=== PATIENT | female | born 2000 | race African-American/Black ===

== ENCOUNTER 2018-05-18 10:27 | Emergency (ER) | payer BC, OTHER ==
[~2018-05-18] VITALS: Ht 180.3 cm; Wt 73.5 kg
[~2018-05-18 10:27] MED LIST: ARIP2TAB3 PO; DULO60CA45 PO; QUET100T PO
--- NOTE | 2018-05-18 10:38 | NUR ---
BIB MOTHER W C/O DIFFUSE ABDOMINAL PAIN, NAUSEA AND VOMITING SINCE , TO ER BED 4, HOOKED TO MONITOR, CHANGED TO GOWN, AWAITING MD NEWBY
--- NOTE | 2018-05-18 10:50 | NUR ---
DR FARNSWORTH AT BEDSIDE
[2018-05-18] MEDS ORDERED: ONDANSETRON HCL/PF 4 MG/2 ML VIAL ONE (11:09)
[2018-05-18] MEDS ORDERED: PANTOPRAZOLE 40 MG VIAL ONE (11:09)
[2018-05-18] MEDS: IV NS 0.9% 1,000 ML BAG IV ONE (11:32)
[2018-05-18 11:34] LABS: CALCIUM, SERUM 8.9 mg/dL (8.5-10.1); CREATININE 0.8 mg/dL (0.6-1.3); POTASSIUM 4.1 mmol/L (3.5-5.1)
[2018-05-18] MEDS: ONDANSETRON HCL/PF 4 MG/2 ML VIAL IVP ONE (11:38)
[2018-05-18] MEDS: PANTOPRAZOLE 40 MG VIAL IV ONE (11:38)
[2018-05-18] MEDS: CAPSAICIN 0.025% CREAM 56.6 GM TUBE TP SCH (11:39)
[2018-05-18 11:41] LABS: ALBUMIN 3.7 g/dL (3.4-5.0); BILIRUBIN,TOTAL 0.3 mg/dL (0.2-1.0); TOTAL PROTEIN, SERUM 7.8 g/dL (6.4-8.2)
[2018-05-18 11:46] LABS: BASOPHILS % (AUTO) 0.2 % (0.0-2.0); EOSINOPHILS % (AUTO) 3.9 % (0.0-6.0); HEMATOCRIT 40 % (33-45); HEMOGLOBIN 12.9 g/dL (11.5-14.8); LYMPHOCYTES # (AUTO) 1.7 /CMM (0.8-4.8); LYMPHOCYTES % (AUTO) 20.9 % (20.0-44.0); MEAN CORPUSCULAR HGB CONC 32 g/dl (31.0-36.0); MEAN CORPUSCULAR VOLUME 74 fL (82-100); MONOCYTES # (AUTO) 0.4 /CMM (0.1-1.30); MONOCYTES % (AUTO) 4.6 % (2.0-12.0); NEUTROPHILS # (AUTO) 5.7 /CMM (1.8-8.9); NEUTROPHILS % (AUTO) 70.4 % (43.0-81.0); PLATELET COUNT (AUTO) 261 /CMM (150-450); RED BLOOD CELL COUNT(AUTO) 5.38 MIL/uL (4.0-5.2); WHITE BLOOD COUNT (AUTO) 8.1 K/uL (4.3-11.0)
--- NOTE | 2018-05-18 12:08 | NUR ---
IV removed. Catheter intact and site benign. Pressure and 4x4 applied to site. No bleeding noted.Patient discharged to home in stable condition. Written and verbal after care instructions given. Patient verbalizes understanding of instruction.
[2018-05-18 12:11] VITALS: BP 133/77
== END 2018-05-18 12:12 | disposition home or self-care (01) ==
LOC: ER 10:29
DX: R11.2 Nausea with vomiting, unspecified (principal); F12.10 Cannabis abuse, uncomplicated; F32.9 Major depressive disorder, single episode, unspecified; G47.00 Insomnia, unspecified; Z79.899 Other long term (current) drug therapy
CPT/HCPCS: 36415; 80048; 80076; 83690; 85025; 96361; 96374; 96375; 99283; C9113; J2405; J7030

== ENCOUNTER 2018-06-04 15:53 | Emergency (ER) | payer BC ==
[~2018-06-04] VITALS: Ht 180.3 cm; Wt 81.2 kg
[2018-06-04] MEDS ORDERED: DULO20CA PO (16:03)
[2018-06-04] MEDS ORDERED: QUET25TA PO (16:03)
--- NOTE | 2018-06-04 16:10 | NUR ---
AAOX3, BIBA RA 878 AND [employer] from home SI pt states "I dont wanna live anymore", no plan at this time. RR is even and unlabored with NAD noted. Skin is warm and dry. Dr Simmons at BS for eval.
--- NOTE | 2018-06-04 16:23 | NUR ---
Clinical Documentation Nurse at drawing blood.
--- NOTE | 2018-06-04 16:24 | NUR ---
Urine obtained sent to the lab.
[2018-06-04 16:25] LABS: APPEARANCE,URINE Slightly Cloudy (CLEAR); BILIRUBIN,URINE Negative (NEGATIVE); BLOOD, URINE Trace-intact Ery/uL (NEGATIVE); COLOR,URINE Yellow (YELLOW); KETONES,URINE Negative (NEGATIVE); LEUKOCYTE ESTERASE ,URINE Small (NEGATIVE); NITRITE, URINE Negative (NEGATIVE); PROTEIN,URINE Trace mg/dl (NEGATIVE); UGLUCOSE Negative (NEGATIVE); UROBILINOGEN,URINE 0.2 EU/dL (0.2)
[2018-06-04 16:30] LABS: BASOPHILS % (AUTO) 0.4 % (0.0-2.0); EOSINOPHILS % (AUTO) 2.6 % (0.0-6.0); HEMATOCRIT 41 % (33-45); HEMOGLOBIN 13.5 g/dL (11.5-14.8); LYMPHOCYTES # (AUTO) 2.5 /CMM (0.8-4.8); LYMPHOCYTES % (AUTO) 26.6 % (20.0-44.0); MEAN CORPUSCULAR HGB CONC 33 g/dl (31.0-36.0); MEAN CORPUSCULAR VOLUME 73 fL (82-100); MONOCYTES # (AUTO) 0.4 /CMM (0.1-1.30); MONOCYTES % (AUTO) 4.1 % (2.0-12.0); NEUTROPHILS # (AUTO) 6.2 /CMM (1.8-8.9); NEUTROPHILS % (AUTO) 66.3 % (43.0-81.0); PLATELET COUNT (AUTO) 317 /CMM (150-450); RED BLOOD CELL COUNT(AUTO) 5.67 MIL/uL (4.0-5.2); WHITE BLOOD COUNT (AUTO) 9.4 K/uL (4.3-11.0)
[2018-06-04 16:38] LABS: RBC,URINE 0-2 /HPF (0-2)
[2018-06-04 16:38] LABS: CARBON DIOXIDE 23 mmol/L (21-32); CHLORIDE 104 mmol/L (98-107); CREATININE 0.8 mg/dL (0.6-1.3); GLUCOSE 95 mg/dL (74-106); POTASSIUM 3.7 mmol/L (3.5-5.1); SODIUM SERUM 137 mmol/L (136-145); UREA NITROGEN, BLOOD 13 mg/dL (7-18)
[2018-06-04 16:39] LABS: BACTERIA,URINE Moderate /HPF (None Seen)
[2018-06-04 16:40] LABS: SQUAMOUS EPITHELIAL CELL,UR Many /HPF (None Seen)
[2018-06-04 16:53] LABS: ALANINE AMINOTRANSFERASE 18 U/L (12-78); ALBUMIN 3.9 g/dL (3.4-5.0); ALKALINE PHOSPHATASE 69 U/L (46-116); ASPARTATE AMINOTRANSFERASE 17 U/L (15-37); BILIRUBIN,DIRECT 0.1 mg/dL (0.0-0.2); BILIRUBIN,TOTAL 0.3 mg/dL (0.2-1.0); SALICYLATE 0.9 mg/dL (2.8-20.0)
[2018-06-04 16:54] LABS: ACETAMINOPHEN 0 ug/ml (10-30); ALCOHOL, BLOOD < 3 mg/dL (0-0)
[2018-06-04 16:55] LABS: THYROID STIMULATING HORMONE 1.389 uIU/mL (0.358-3.74)
--- NOTE | 2018-06-04 17:00 | NUR ---
CALLED [employer] LEASING MANAGER SHAWNA CONTRERAS 1 HR
--- NOTE | 2018-06-04 17:54 | NUR ---
KYAW Olivares for Psych eval.
[2018-06-04] MEDS ORDERED: NITROFURANTOIN/NITROFURAN MAC 100 MG CAPSULE PO ONE (18:30)
--- NOTE | 2018-06-04 18:30 | NUR ---
Patient is resting comfortably in bed. VSS
[2018-06-04] MEDS ORDERED: NITROFURANTOIN/NITROFURAN MAC 100 MG CAPSULE ONE (18:33)
--- NOTE | 2018-06-04 19:07 | NUR ---
REPORT GIVEN TO KYAW ROGEL FOR HO.
--- NOTE | 2018-06-04 20:41 | NUR ---
DOM ETA [id number] TRIP#[id number]
--- NOTE | 2018-06-04 20:48 | NUR ---
DIRECT ADMIT TO [facility] PENDING ROOM PER PLUSH DRESSER RN FOR REPORT [phone]
--- NOTE | 2018-06-04 21:14 | NUR ---
REPORT GIVEN TO KYAW MURGUIA AT [facility] FOR HO
--- NOTE | 2018-06-04 21:14 | NUR ---
[facility] BED 442-A
[2018-06-04 21:50] VITALS: BP 121/68
== END 2018-06-04 22:35 | disposition home or self-care (01) ==
LOC: ER 15:58
DX: F29 Unspecified psychosis not due to a substance or known physiological condition (principal); G47.00 Insomnia, unspecified; F32.9 Major depressive disorder, single episode, unspecified; R45.851 Suicidal ideations; F12.10 Cannabis abuse, uncomplicated
CPT/HCPCS: 36415; 80048; 80076; 80305; 80307; 80329; 81001; 84443; 84703; 85025; 87086; 99284; G0480; 81000-TC

== ENCOUNTER 2019-10-27 14:56 | Emergency (ER) | payer BC ==
[~2019-10-27] VITALS: Ht 180.3 cm; Wt 93.4 kg
[2019-10-27] MEDS ORDERED: OLANZAPINE 10 MG VIAL IM ONE ×2 (15:26→15:30)
--- NOTE | 2019-10-27 15:35 | NUR ---
ER BED 12 PT BROUGHT IN BY DRAGLINE OPERATOR HELPER COMPLAINT OF SUICIDAL IDEATION. PT CRYING CONTINOUSLY UPON ARRIVAL. NO CARDIAC OR RESPIRATORY DISTRESS NOTED. VS STABLE.
--- NOTE | 2019-10-27 15:38 | NUR ---
ZYPREXA ZYPREXA IM GIVEN PER MD ORDER.
[2019-10-27 15:53] LABS: BASOPHILS # (AUTO) 0.1 /CMM (0.0-0.2); BASOPHILS % (AUTO) 0.4 % (0.0-2.0); EOSINOPHILS % (AUTO) 3.9 % (0.0-6.0); HEMATOCRIT 46 % (33-45); HEMOGLOBIN 14.9 g/dL (11.5-14.8); LYMPHOCYTES # (AUTO) 3.6 /CMM (0.8-4.8); LYMPHOCYTES % (AUTO) 29.1 % (20.0-44.0); MEAN CORPUSCULAR HGB CONC 32 g/dl (31.0-36.0); MEAN CORPUSCULAR VOLUME 74 fL (82-100); MONOCYTES # (AUTO) 0.7 /CMM (0.1-1.30); NEUTROPHILS # (AUTO) 7.4 /CMM (1.8-8.9); NEUTROPHILS % (AUTO) 60.6 % (43.0-81.0); PLATELET COUNT (AUTO) 346 /CMM (150-450); RED BLOOD CELL COUNT(AUTO) 6.23 MIL/uL (4.0-5.2); WHITE BLOOD COUNT (AUTO) 12.3 K/uL (4.3-11.0)
[2019-10-27 15:59] LABS: CARBON DIOXIDE 23 mmol/L (21-32); CHLORIDE 104 mmol/L (98-107); CREATININE 0.9 mg/dL (0.6-1.3); GLUCOSE 88 mg/dL (74-106); SODIUM SERUM 139 mmol/L (136-145); UREA NITROGEN, BLOOD 10 mg/dL (7-18)
[2019-10-27 16:05] LABS: ALANINE AMINOTRANSFERASE 20 U/L (12-78); ALBUMIN 4.3 g/dL (3.4-5.0); ALCOHOL, BLOOD < 3 mg/dL (0-0); ALKALINE PHOSPHATASE 88 U/L (46-116); ASPARTATE AMINOTRANSFERASE 18 U/L (15-37); BILIRUBIN,DIRECT 0.1 mg/dL (0.0-0.2); BILIRUBIN,TOTAL 0.4 mg/dL (0.2-1.0); CALCIUM, SERUM 9.7 mg/dL (8.5-10.1); TOTAL PROTEIN, SERUM 8.8 g/dL (6.4-8.2)
[2019-10-27 16:06] LABS: SALICYLATE < 2.8 mg/dL (2.8-20.0)
--- NOTE | 2019-10-27 16:40 | NUR ---
Hailee Denton, called for PET eval. ETA 1hr.
[2019-10-27 16:55] LABS: BILIRUBIN,URINE Negative (NEGATIVE); BLOOD, URINE Negative Ery/uL (NEGATIVE); COLOR,URINE Yellow (YELLOW); KETONES,URINE 15 (NEGATIVE); LEUKOCYTE ESTERASE ,URINE Negative (NEGATIVE); NITRITE, URINE Negative (NEGATIVE); PH,URINE 7.5 (5.0-8.0); PROTEIN,URINE 30 mg/dl (NEGATIVE); UGLUCOSE Negative (NEGATIVE); UROBILINOGEN,URINE 0.2 EU/dL (0.2)
[2019-10-27 16:59] LABS: BAND % (MANUAL) 1 % (0.0-5.0); EOSINOPHILS % (MANUAL) 6 % (0-4); LYMPHOCYTES % (MANUAL) 34 % (16-48); MONOCYTES % (MANUAL) 1 % (0-11.0); NEUTROPHILS % (MANUAL) 58 (42-76)
[2019-10-27 16:59] LABS: APPEARANCE,URINE SLIGHTLY HAZY (CLEAR)
[2019-10-27 17:00] LABS: BACTERIA,URINE Few /HPF (None Seen); SQUAMOUS EPITHELIAL CELL,UR Moderate /HPF (None Seen)
--- NOTE | 2019-10-27 17:30 | NUR ---
PT ASLEEP, EASILY AWAKEN BY VERBAL STIMULI & WILL GO BACK TO SLEEP. DENIES CP, SOB, DIZZINESS, ABD PAIN, N/V AT THIS TIME. WILL CONT TO MONITOR. DEVON @ BS.
--- NOTE | 2019-10-27 17:58 | NUR ---
received a call from the lab regarding covid 19 result "positive", notified.
[2019-10-27] MEDS ORDERED: diphenhydrAMINE HCL 50 MG/ML VIAL ONE (20:54)
[2019-10-27 21:00] VITALS: BP 110/74
[2019-10-27] MEDS ORDERED: diphenhydrAMINE HCL 50 MG/ML VIAL IM ONE (21:00)
[2019-10-27] MEDS ORDERED: diphenhydrAMINE HCL 50 MG CAPSULE ONE (21:16)
--- NOTE | 2019-10-27 21:29 | NUR ---
AWAITING PERCH MENDER ODIN. PT CRYING, MEDICATED PER ERMD ORDER, PT CLOTILDE WELL. WILL CONT TO MONITOR. DEVON @ BS.
[2019-10-27] MEDS ORDERED: diphenhydrAMINE HCL 25 MG CAPSULE PO ONE (21:30)
--- NOTE | 2019-10-27 22:35 | NUR ---
Patient is resting comfortably in bed with eyes closed. Easily aroused. VSS
--- NOTE | 2019-10-28 00:57 | NUR ---
PATIENT IS SLEEPING. EASILY AROUSABLE THROUGH TOUCH AND VERBAL STIMULI. CONNECTED TO THE MONITOR. BREATHING EVENLY AND UNLABORED ON ROOM AIR. SITTER AT BEDSIDE.
--- NOTE | 2019-10-28 02:35 | NUR ---
Patient is crying, frustrated, and upset. Patient is redirectable after multiple attempts. Patient is given food and drinks.
--- NOTE | 2019-10-28 03:51 | NUR ---
Marcos FRAUSTO at bedside speaking with patient.
[2019-10-28] MEDS ORDERED: OLANZAPINE 5 MG TABLET ONE (04:09)
--- NOTE | 2019-10-28 04:27 | NUR ---
Patient's mother, Mary is present in the waiting room to receive patient to go home.
--- NOTE | 2019-10-28 04:28 | NUR ---
Patient's mother and patient's grandmother is speaking with Marcos RITTER
[2019-10-28] MEDS ORDERED: OLANZAPINE 5 MG/TAB.RAPDIS PO ONE (04:30)
--- NOTE | 2019-10-28 04:33 | NUR ---
Patient discharged to home in stable condition. Written and verbal after care instructions given. Patient verbalizes understanding of instruction.
== END 2019-10-28 05:00 | disposition home or self-care (01) ==
LOC: ER 14:57
DX: R45.851 Suicidal ideations (principal); U07.1 COVID-19; G47.00 Insomnia, unspecified; F32.9 Major depressive disorder, single episode, unspecified; R45.1 Restlessness and agitation
CPT/HCPCS: 36415; 80048; 80076; 80305; 80307; 80329; 81001; 84703; 85025; 87086; 87426; 96372; 99285; C9803; G0480; J1200; J3490; Q0163; 81000-TC

== ENCOUNTER 2021-02-07 14:02 | Emergency (ER) | payer SELFPAY ==
[~2021-02-07] VITALS: Ht 180.3 cm; Wt 77.1 kg
--- NOTE | 2021-02-07 14:20 | NUR ---
[id number] FROM HOME C/O ABDOMINAL PAIN WITH NAUSEA AND VOMITING SINCE THE MNORNING. VSS. BREATHING IS REGULAR AND UNLABORED.
--- NOTE | 2021-02-07 15:00 | NUR ---
IV LINE ESTABLISHED BLOOD DRAWN AND SENT TO LAB.
[2021-02-07] MEDS ORDERED: ONDANSETRON HCL/PF 4 MG/2 ML VIAL ONE ×2 (15:04→16:31)
[2021-02-07 15:26] LABS: BASOPHILS % (AUTO) 0.1 % (0.0-2.0); HEMATOCRIT 45 % (33-45); HEMOGLOBIN 14.4 g/dL (11.5-14.8); LYMPHOCYTES # (AUTO) 1.4 K/uL (0.8-4.8); LYMPHOCYTES % (AUTO) 9.6 % (20.0-44.0); MEAN CORPUSCULAR HGB CONC 32 g/dl (31.0-36.0); MEAN CORPUSCULAR VOLUME 74 fL (82-100); MONOCYTES # (AUTO) 0.4 K/uL (0.1-1.30); NEUTROPHILS # (AUTO) 12.9 K/uL (1.8-8.9); NEUTROPHILS % (AUTO) 87.3 % (43.0-81.0); PLATELET COUNT (AUTO) 383 K/uL (150-450); RED BLOOD CELL COUNT(AUTO) 6.08 MIL/uL (4.0-5.2); WHITE BLOOD COUNT (AUTO) 14.8 K/uL (4.3-11.0)
[2021-02-07] MEDS ORDERED: ONDANSETRON HCL/PF 4 MG/2 ML VIAL IV ONE ×2 (15:30→16:30)
[2021-02-07] MEDS ORDERED: MORPHINE SULFATE INJ 2 MG/ML DISP.SYRIN IV ONE ×2 (15:30→16:30)
[2021-02-07] MEDS ORDERED: IV NS 0.9% 500 ML BAG IV ONE (15:30)
[2021-02-07] MEDS ORDERED: MORPHINE SULFATE INJ 4 MG/ML DISP.SYRIN ONE ×2 (15:36→16:28)
[2021-02-07 15:37] LABS: CALCIUM, SERUM 8.8 mg/dL (8.5-10.1); CREATININE 0.8 mg/dL (0.6-1.3); POTASSIUM 3.2 mmol/L (3.5-5.1)
[2021-02-07 15:43] LABS: ALBUMIN 4.2 g/dL (3.4-5.0); BILIRUBIN,DIRECT 0.1 mg/dL (0.0-0.2); BILIRUBIN,TOTAL 0.5 mg/dL (0.2-1.0); TOTAL PROTEIN, SERUM 7.5 g/dL (6.4-8.2)
[2021-02-07] MEDS ORDERED: POTASSIUM CHLORIDE 20 MEQ TAB.PRT.SR PO ONE ×2 (15:58→16:00)
--- NOTE | 2021-02-07 16:11 | NUR ---
PT UNABLE TO PROVIDE URINE AT THIS TIME
[2021-02-07 16:12] LABS: LYMPHOCYTES % (MANUAL) 11 % (16-48); MONOCYTES % (MANUAL) 5 % (0-11.0); NEUTROPHILS % (MANUAL) 84 (42-76)
--- NOTE | 2021-02-07 16:14 | NUR ---
COVID TEST COLLECTED AND SENT
[2021-02-07] MEDS ORDERED: IOHEXOL-300 100 ML VIAL IV ONE (16:18)
--- NOTE | 2021-02-07 16:39 | NUR ---
PT TAKEN TO [facility]
--- NOTE | 2021-02-07 16:48 | NUR ---
Ishmael erickson in [facility] - 02/07/21 at 1649 by SWEETIE PT BACK FROM CT
--- NOTE | 2021-02-07 16:49 | NUR ---
PT BACK FROM [facility]
--- NOTE | 2021-02-07 17:01 | NUR ---
URINE COLLECTED AND SENT TO LAB
[2021-02-07 17:23] LABS: BILIRUBIN,URINE NEGATIVE (NEGATIVE); COLOR,URINE YELLOW (YELLOW); LEUKOCYTE ESTERASE ,URINE NEGATIVE (NEGATIVE); NITRITE, URINE NEGATIVE (NEGATIVE); PH,URINE 8.5 (5.0-8.0); PROTEIN,URINE 30 mg/dl (NEGATIVE); UGLUCOSE NEGATIVE (NEGATIVE); UROBILINOGEN,URINE 0.2 EU/dL (0.2)
[2021-02-07 17:32] LABS: BACTERIA,URINE Few /HPF (None Seen); RBC,URINE 0-2 /HPF (0-2); SQUAMOUS EPITHELIAL CELL,UR Few /HPF (None Seen); WBC,URINE 0-2 /HPF (0-3)
[2021-02-07] MEDS ORDERED: ONDA4TAB5 PO (17:44)
[2021-02-07] MEDS ORDERED: TRAM50TA2 PO (17:44)
[2021-02-07] MEDS ORDERED: ACET-2605 PO (17:44)
[2021-02-07] MEDS ORDERED: AZITHROMYCIN 250 MG TABLET PO ONE (18:00)
--- NOTE | 2021-02-07 18:06 | NUR ---
Patient discharged to home in stable condition. Written and verbal after care instructions given. Patient verbalizes understanding of instruction. IV removed. Catheter intact and site benign. Pressure and 4x4 applied to site. No bleeding noted.
[2021-02-07 18:12] VITALS: BP 122/83
[2021-02-07] MEDS ORDERED: AZITHROMYCIN 250 MG TABLET ONE (18:14)
== END 2021-02-07 18:12 | disposition home or self-care (01) ==
LOC: ER 14:05
DX: K52.9 Noninfective gastroenteritis and colitis, unspecified (principal); D72.829 Elevated white blood cell count, unspecified; E87.6 Hypokalemia; E87.2 Acidosis; Z20.822 Contact with and (suspected) exposure to COVID-19; F32.A Depression, unspecified; G47.00 Insomnia, unspecified; Z79.899 Other long term (current) drug therapy
CPT/HCPCS: 36415; 74177; 80048; 80076; 81001; 83690; 84702; 85007; 85025; 87426; 96361; 96374; 96375; 96376; 99285; C9803; J2270 ×2; J2405 ×2; J7030; Q9967

== ENCOUNTER 2021-05-03 14:46 | Emergency (ER) | payer OTHER ==
[~2021-05-03] VITALS: Ht 170.2 cm; Wt 75.7 kg
[~2021-05-03 14:46] MED LIST changes: +ACET-2605 PO; +ONDA4TAB5 PO; +TRAM50TA2 PO
--- NOTE | 2021-05-03 14:55 | NUR ---
[facility] HOME, CALLED 911 S/P TAKING 28 PILLS OF GABAPENTIN 300MG STATES "I FEEL SAD" LOST MY JOB AND I WANT TO END IT." PT HAS HAD ABDOMINAL PAIN SINCE LAST SUMMER AND LOST HER JOB DUE TO CHRONIC PAIN AND STATED SHE DOESNT GET TO LEAVE THE HOUSE AND "WANTED TO [place]". PT IS DENYING TO ACT UPON HARM HERSELF AT THIS TIME. PT ATTCHED TO [facility]. SAFETY MEASURE IN PLACE; 1:[address] MANRIQUEZ AT BEDSIDE. WILL CONTINUE TO MONITOR.
--- NOTE | 2021-05-03 14:55 | NUR ---
CALLED [facility]ISON CONTROL [phone] SPOKE WITH MILA. WATCH FOR SEDATION, SLURRED SPEECH. ASPIRATION PRECAUTION. RECOMMENDED: ACTIVATED CHARCOAL 75-100 OBSERVATION FOR 6 HOUR SUPPORTIVE CARE. LABS FOR TYLENOL, ASPRIN, AND CMP.
--- NOTE | 2021-05-03 15:08 | NUR ---
IV ESTABLISHED R AC 20G. LABS DRAWN AND COLLECTED AT BEDSIDE
--- NOTE | 2021-05-03 15:16 | NUR ---
[employer] AT BEDSIDE
[2021-05-03 15:27] LABS: BASOPHILS % (AUTO) 0.4 % (0.0-2.0); EOSINOPHILS % (AUTO) 1.8 % (0.0-6.0); HEMATOCRIT 45 % (33-45); HEMOGLOBIN 14.3 g/dL (11.5-14.8); LYMPHOCYTES # (AUTO) 2.3 K/uL (0.8-4.8); LYMPHOCYTES % (AUTO) 23.2 % (20.0-44.0); MEAN CORPUSCULAR HGB CONC 32 g/dl (31.0-36.0); MEAN CORPUSCULAR VOLUME 74 fL (82-100); MONOCYTES # (AUTO) 0.5 K/uL (0.1-1.30); MONOCYTES % (AUTO) 5.1 % (2.0-12.0); NEUTROPHILS % (AUTO) 69.5 % (43.0-81.0); PLATELET COUNT (AUTO) 292 K/uL (150-450); RED BLOOD CELL COUNT(AUTO) 6.05 MIL/uL (4.0-5.2)
[2021-05-03 15:53] LABS: CALCIUM, SERUM 9.1 mg/dL (8.5-10.1); CARBON DIOXIDE 23 mmol/L (21-32); CHLORIDE 105 mmol/L (98-107); CREATININE 0.9 mg/dL (0.6-1.3); GLUCOSE 104 mg/dL (74-106); POTASSIUM 3.4 mmol/L (3.5-5.1); SODIUM SERUM 138 mmol/L (136-145); UREA NITROGEN, BLOOD 7 mg/dL (7-18)
[2021-05-03 15:57] LABS: ALANINE AMINOTRANSFERASE 17 U/L (12-78); ALBUMIN 4.5 g/dL (3.4-5.0); ALKALINE PHOSPHATASE 87 U/L (46-116); ASPARTATE AMINOTRANSFERASE 10 U/L (15-37); BILIRUBIN,DIRECT 0.1 mg/dL (0.0-0.2); BILIRUBIN,TOTAL 0.5 mg/dL (0.2-1.0); TOTAL PROTEIN, SERUM 8.1 g/dL (6.4-8.2)
[2021-05-03 15:59] LABS: ALCOHOL, BLOOD < 3 mg/dL (0-0)
[2021-05-03] MEDS ORDERED: ACTIVATED CHARCOAL 25 GM/120 ML TUBE ONE (16:27)
[2021-05-03] MEDS ORDERED: ACTIVATED CHARCOAL 25 GM/120 ML TUBE PO ONE (16:30)
--- NOTE | 2021-05-03 17:01 | NUR ---
URINE COLLECTED AND SENT
[2021-05-03 18:42] LABS: LYMPHOCYTES % (MANUAL) 30 % (16-48); MONOCYTES % (MANUAL) 5 % (0-11.0); NEUTROPHILS % (MANUAL) 64 (42-76); REACTIVE LYMPHOCYTES 1 % (0-0)
--- NOTE | 2021-05-03 19:21 | NUR ---
FESTUS SALAS. [phone] GRANDMOTHER.
--- NOTE | 2021-05-03 20:10 | NUR ---
CALLED [facility]. SHE IS ON HER WAY HERE.
[2021-05-03 20:17] LABS: BILIRUBIN,URINE NEGATIVE (NEGATIVE); COLOR,URINE YELLOW (YELLOW); LEUKOCYTE ESTERASE ,URINE NEGATIVE (NEGATIVE); NITRITE, URINE NEGATIVE (NEGATIVE); PH,URINE 7.5 (5.0-8.0); PROTEIN,URINE NEGATIVE (NEGATIVE); UGLUCOSE NEGATIVE (NEGATIVE)
[2021-05-03 20:49] LABS: BACTERIA,URINE RARE /HPF (None Seen); MUCUS,URINE Few /LPF (None Seen); RBC,URINE 0-2 /HPF (0-2); WBC,URINE 0-2 /HPF (0-3)
--- NOTE | 2021-05-03 21:27 | NUR ---
PATINE IS RESTING IN BED , EASILY AROUSABLE. SPOKE TO STABIEN AT POISON CONTR[facility] AND GAVE A SET OF VITAL AND UPDATED HIM. PER HIM PT IS CLEAR AND TRHEY WILL CLOSE THE CASE 87,108/68/19/98%
--- NOTE | 2021-05-03 23:23 | NUR ---
SEEN AND EVALUATED BY ALBINA DOMINGUEZ
--- NOTE | 2021-05-03 23:42 | NUR ---
Patient continue to have SI. Patient will remain on hold. Patient's clinicals where faxed to [facility] Valadez, [facility], [facility]. No openings at this time. Clinicals should be faxed again in the AM.
--- NOTE | 2021-05-04 03:25 | NUR ---
PT SLEEPING COMOFORTABLY. ALL NEEDS MET. V/S WNL.
--- NOTE | 2021-05-04 07:17 | NUR ---
PATIENT AWAKE, AAOX3, NO COMPLAINS AT THIS TIME
--- NOTE | 2021-05-04 10:58 | NUR ---
Patient's clinicals were re fax to [facility], [place], [facility], and [facility]. Awaiting for response.
--- NOTE | 2021-05-04 11:29 | NUR ---
[facility] called back and stated that pt. does not meet criteria for admission.
--- NOTE | 2021-05-04 11:36 | NUR ---
[facility] called and stated that pt. does not meet criteria for admission.
--- NOTE | 2021-05-04 12:09 | NUR ---
Pt. does not meet criteria for [facility].
--- NOTE | 2021-05-04 12:21 | NUR ---
[facility]andy[facility] Laury has no bed available at the moment. Waiting for discharge.
--- NOTE | 2021-05-04 13:55 | NUR ---
DON recived call from Intake: Viv from [facility] stating that they are willing to take the pt. and requested that negatiev COVID test be refaxed to her at [phone]. Noted. Per viv's request SW tranferred her to the ED to speak with nurse.
--- NOTE | 2021-05-04 14:01 | NUR ---
REPORT GIVEN DELILAH, ACCEPTED UNDER DR BOOGIE
--- NOTE | 2021-05-04 14:04 | NUR ---
FAXED UPDATED COVID RESULT TO JUSTIN STONE AT [phone]
--- NOTE | 2021-05-04 14:05 | NUR ---
SW faxed COVID test result to Denise Nam at [phone].
--- NOTE | 2021-05-04 14:06 | NUR ---
CALLED [facility] AND SET UP S TRANSPORT TO [facility] 1500
--- NOTE | 2021-05-04 15:00 | NUR ---
PICKED UP BY TRANSPORT IN STABLE CONDITION
[2021-05-04 15:55] VITALS: BP 130/87
== END 2021-05-04 17:36 ==
LOC: ER 14:48
DX: T42.6X2A Poisoning by other antiepileptic and sedative-hypnotic drugs, intentional self-harm, initial encounter (principal); Y92.039 Unspecified place in apartment as the place of occurrence of the external cause; F32.A Depression, unspecified; G47.00 Insomnia, unspecified; Z20.822 Contact with and (suspected) exposure to COVID-19
CPT/HCPCS: 36415; 80048; 80076; 80143; 80307; 80320; 81001; 84703; 85007; 85025; 87426; 93005; 99291; C9803; G0480

== ENCOUNTER 2021-05-10 02:18 | Emergency (ER) | payer OTHER ==
[~2021-05-10] VITALS: Ht 177.8 cm; Wt 68.0 kg
--- NOTE | 2021-05-10 02:35 | NUR ---
[id number] FROM HOME, PATIENTS MOM SEEN PATIENT "BANGING HEAD ON WALL"PATIENT DENIES S/I H/I. PATIENT ALERT AND ORIENTED X3. AMBULATORY WITH NON LABORED BREATHING. PLACED IN BED 12 WITH SITTER NEAR BY.
--- NOTE | 2021-05-10 03:25 | NUR ---
Patient discharged to home in stable condition. Written and verbal after care instructions given. Patient verbalizes understanding of instruction.
[2021-05-10 03:26] VITALS: BP 141/66
== END 2021-05-10 03:27 | disposition home or self-care (01) ==
LOC: ER 02:27
DX: F32.A Depression, unspecified (principal); Z79.899 Other long term (current) drug therapy

== ENCOUNTER 2021-06-11 01:40 | Emergency (ER) | payer OTHER ==
[~2021-06-11] VITALS: Ht 180.3 cm; Wt 74.4 kg
[2021-06-11] MEDS ORDERED: DICYCLOMINE HCL INJ 20 MG/2 ML AMPUL IM ONE ×2 (01:59→02:00)
[2021-06-11] MEDS ORDERED: ONDANSETRON HCL/PF 4 MG/2 ML VIAL ONE ×2 (01:59→02:55)
[2021-06-11] MEDS ORDERED: ONDANSETRON HCL/PF 4 MG/2 ML VIAL IVP ONE (02:00)
[2021-06-11] MEDS ORDERED: IV NS 0.9% 500 ML BAG IV ONE (02:00)
--- NOTE | 2021-06-11 02:00 | NUR ---
CHANTALE 839 FROM HOME C/O ABD PAIN X1 MONTH +N/V TODAY. PATIENT ALERT AND ORIENTED X3. AMBULATORY WITH NON LABORED BREATHING IN BED 10 ON MONITOR AWAITING MD NEWBY.
--- NOTE | 2021-06-11 02:15 | NUR ---
BLOOD COLLECTED AND SENT TO LAB
--- NOTE | 2021-06-11 02:27 | NUR ---
PT UNABLE TO GIVE URINE AT THIS TIME
[2021-06-11 02:38] LABS: BASOPHILS % (AUTO) 0.1 % (0.0-2.0); EOSINOPHILS % (AUTO) 0.1 % (0.0-6.0); HEMATOCRIT 43 % (33-45); HEMOGLOBIN 13.7 g/dL (11.5-14.8); LYMPHOCYTES # (AUTO) 1.4 K/uL (0.8-4.8); LYMPHOCYTES % (AUTO) 11.7 % (20.0-44.0); MEAN CORPUSCULAR HGB CONC 32 g/dl (31.0-36.0); MEAN CORPUSCULAR VOLUME 74 fL (82-100); MONOCYTES # (AUTO) 0.4 K/uL (0.1-1.30); NEUTROPHILS # (AUTO) 10.2 K/uL (1.8-8.9); NEUTROPHILS % (AUTO) 85.1 % (43.0-81.0); PLATELET COUNT (AUTO) 326 K/uL (150-450); RED BLOOD CELL COUNT(AUTO) 5.74 MIL/uL (4.0-5.2)
[2021-06-11 02:44] LABS: CALCIUM, SERUM 9.5 mg/dL (8.5-10.1); CREATININE 0.9 mg/dL (0.6-1.3); POTASSIUM 3.5 mmol/L (3.5-5.1)
[2021-06-11 02:51] LABS: ALBUMIN 4.4 g/dL (3.4-5.0); BILIRUBIN,DIRECT 0.1 mg/dL (0.0-0.2); BILIRUBIN,TOTAL 0.5 mg/dL (0.2-1.0); TOTAL PROTEIN, SERUM 7.9 g/dL (6.4-8.2)
[2021-06-11] MEDS ORDERED: ONDANSETRON HCL/PF 4 MG/2 ML VIAL IV ONE (03:00)
--- NOTE | 2021-06-11 03:16 | NUR ---
URINE COLLECTED AND SENT TO LAB
[2021-06-11 03:19] LABS: BILIRUBIN,URINE NEGATIVE (NEGATIVE); COLOR,URINE YELLOW (YELLOW); LEUKOCYTE ESTERASE ,URINE NEGATIVE (NEGATIVE); NITRITE, URINE NEGATIVE (NEGATIVE); PH,URINE 8.5 (5.0-8.0); PROTEIN,URINE TRACE mg/dl (NEGATIVE); UGLUCOSE NEGATIVE (NEGATIVE); UROBILINOGEN,URINE 0.2 EU/dL (0.2)
[2021-06-11] MEDS ORDERED: MORPHINE SULFATE INJ 4 MG/ML DISP.SYRIN ONE (03:26)
[2021-06-11] MEDS ORDERED: MORPHINE SULFATE INJ 2 MG/ML DISP.SYRIN IV ONE (03:30)
--- NOTE | 2021-06-11 03:33 | NUR ---
PT BEING TRANSPORTED TO CT [facility]IA [facility]
--- NOTE | 2021-06-11 03:45 | NUR ---
PT RETURNED FROM CT SCAN
[2021-06-11] MEDS ORDERED: ONDA4TAB5 PO (04:45)
[2021-06-11] MEDS ORDERED: AMOX-430 PO (04:45)
[2021-06-11] MEDS ORDERED: AMOX/CLAVULANATE 875 MG TABLET ONE (04:48)
--- NOTE | 2021-06-11 04:57 | NUR ---
Patient discharged to home in stable condition. Written and verbal after care instructions given. Patient verbalizes understanding of instruction. IV line removed and PT ambulatory with steady gait.
[2021-06-11 04:58] VITALS: BP 108/76
[2021-06-11] MEDS ORDERED: AMOX/CLAVULANATE 875 MG TABLET PO ONE (05:00)
== END 2021-06-11 05:00 | disposition home or self-care (01) ==
LOC: ER 01:49
DX: K52.9 Noninfective gastroenteritis and colitis, unspecified (principal); F32.A Depression, unspecified; Z79.899 Other long term (current) drug therapy
CPT/HCPCS: 36415; 74176; 80048; 80076; 81003; 83690; 84703; 85025; 96361; 96372; 96374; 96375; 96376; 99284; J0500; J2270; J2405 ×2; J7040

== ENCOUNTER 2023-05-11 17:36 | Emergency (ER) | payer OTHER ==
[~2023-05-11] VITALS: Ht 180.3 cm; Wt 72.6 kg
[~2023-05-11 17:36] MED LIST changes: +AMOX-430 PO
[2023-05-11] MEDS ORDERED: HALOPERIDOL LACTATE INJ 5 MG/ML VIAL ONE (18:53)
[2023-05-11] MEDS ORDERED: MORPHINE SULFATE INJ 4 MG/ML DISP.SYRIN ONE (18:54)
[2023-05-11] MEDS ORDERED: ONDANSETRON HCL/PF 4 MG/2 ML VIAL ONE (18:54)
[2023-05-11] MEDS: IV NS 0.9% 1,000 ML BAG IV ONE (19:07)
[2023-05-11] MEDS: ONDANSETRON HCL/PF 4 MG/2 ML VIAL IVP ONE (19:07)
[2023-05-11] MEDS: HALOPERIDOL LACTATE INJ 5 MG/ML VIAL IV ONE (19:08)
[2023-05-11] MEDS: MORPHINE SULFATE INJ 2 MG/ML DISP.SYRIN IV ONE (19:09)
[2023-05-11 19:11] LABS: BASOPHILS % (AUTO) 0.1 % (0.0-2.0); EOSINOPHILS % (AUTO) 0.1 % (0.0-6.0); HEMATOCRIT 41 % (33-45); HEMOGLOBIN 13.3 g/dL (11.5-14.8); LYMPHOCYTES # (AUTO) 1.2 K/uL (0.8-4.8); LYMPHOCYTES % (AUTO) 9.8 % (20.0-44.0); MEAN CORPUSCULAR HEMOGLOBIN 23 PG (26.0-33.0); MEAN CORPUSCULAR HGB CONC 32 g/dl (31.0-36.0); MEAN CORPUSCULAR VOLUME 73 fL (82-100); MONOCYTES # (AUTO) 0.5 K/uL (0.1-1.30); MONOCYTES % (AUTO) 4.1 % (2.0-12.0); NEUTROPHILS # (AUTO) 10.3 K/uL (1.8-8.9); NEUTROPHILS % (AUTO) 85.9 % (43.0-81.0); PLATELET COUNT (AUTO) 295 K/uL (150-450); RED BLOOD CELL COUNT(AUTO) 5.67 MIL/uL (4.0-5.2); RED CELL DISTRIBUTION WIDTH 15.7 % (11.5-15.0)
[2023-05-11] MEDS ORDERED: LORAZEPAM INJ 2 MG/ML VIAL ONE (19:25)
[2023-05-11] MEDS: LORAZEPAM INJ 2 MG/ML VIAL IV ONE (19:39)
[2023-05-11 19:47] LABS: CALCIUM, SERUM 9.6 mg/dL (8.5-10.1); POTASSIUM 3.5 mmol/L (3.5-5.1)
[2023-05-11 19:53] LABS: ALBUMIN 4.3 g/dL (3.4-5.0); BILIRUBIN,DIRECT 0.2 mg/dL (0.0-0.2); BILIRUBIN,TOTAL 0.7 mg/dL (0.2-1.0); TOTAL PROTEIN, SERUM 7.6 g/dL (6.4-8.2)
[2023-05-11 19:53] LABS: APPEARANCE,URINE CLEAR (CLEAR); BILIRUBIN,URINE NEGATIVE (NEGATIVE); BLOOD, URINE NEGATIVE Ery/uL (NEGATIVE); COLOR,URINE YELLOW (YELLOW); KETONES,URINE 3+ mg/dL (NEGATIVE); LEUKOCYTE ESTERASE ,URINE NEGATIVE (NEGATIVE); NITRITE, URINE NEGATIVE (NEGATIVE); PH,URINE 8.5 (5.0-8.0); PROTEIN,URINE TRACE mg/dl (NEGATIVE); UGLUCOSE NEGATIVE (NEGATIVE); UROBILINOGEN,URINE 0.2 EU/dL (0.2)
[2023-05-11 19:56] LABS: PREGNANCY TEST URINE QUAL NEGATIVE (NEGATIVE)
[2023-05-11 21:16] LABS: ADD URINE CULTURE NO; BACTERIA,URINE None seen /HPF (None Seen); RBC,URINE 0-2 /HPF (0-2); WBC,URINE 0-2 /HPF (0-3)
[2023-05-11 21:17] LABS: MUCUS,URINE Few /LPF (None Seen)
[2023-05-11] MEDS ORDERED: DICY10CA37 PO (22:05)
[2023-05-11] MEDS ORDERED: ONDA4TAB11 PO (22:05)
[2023-05-11 22:32] VITALS: BP 111/68; TEMP 98; O2SAT 97
== END 2023-05-11 22:33 | disposition home or self-care (01) ==
LOC: ER 17:41
DX: R10.84 Generalized abdominal pain (principal); F12.11 Cannabis abuse, in remission; R11.2 Nausea with vomiting, unspecified; F32.A Depression, unspecified; F41.9 Anxiety disorder, unspecified
CPT/HCPCS: 99285; 74176; 96374; 96361; 96375 ×3; 85025; 80048; 83690; 80076; 84703; 81001; 36415; J2060; J1630; J2270; J2405; J7030